=== PATIENT | male | born 1945 | race Caucasian/White ===

== ENCOUNTER 2017-01-22 06:21 | Emergency (ER) | payer OTHER, MEDICARE ==
[~2017-01-22] VITALS: Ht 170.2 cm; Wt 69.4 kg
[2017-01-22] MEDS ORDERED: CARVEDILOL12.5 MG PO (06:48)
[2017-01-22] MEDS ORDERED: RAMIPRIL10 MG PO (06:49)
[2017-01-22] MEDS ORDERED: ATORVASTATIN CA40 MG PO (06:49)
[2017-01-22] MEDS ORDERED: ASPIR-LOW81 MG PO (06:49)
[2017-01-22] MEDS ORDERED: EZETIMIBE10 MG PO (06:49)
--- NOTE | 2017-01-22 22:52 | EKG ---
[facility] [address] [facility] [place] [address] Signed Normal sinus rhythm Cannot rule out Inferior infarct , age undetermined Abnormal ECG No previous ECGs available Confirmed by TAHIRA BELLA MD ([id number]) on 01/22/2017 10:52:07 PM Electronically Signed By: TAHIRA BELLA MD 01/22/17 2252 PATIENT NAME: MEETA SOLANO Electrocardiogram DATE OF : 49 PHYSICIAN: TAHIRA BELLA MD REPORT #: [id number] REPORT IS CONFIDENTIAL AND NOT TO BE RELEASED WITHOUT AUTHORIZATION
== END 2017-01-22 09:00 | disposition home or self-care (01) ==
LOC: ED 06:21
DX: R55 Syncope and collapse (principal); I25.2 Old myocardial infarction; F17.200 Nicotine dependence, unspecified, uncomplicated; Z88.0 Allergy status to penicillin; Z91.018 Allergy to other foods; Z79.899 Other long term (current) drug therapy; Z79.82 Long term (current) use of aspirin
CPT/HCPCS: 70450; 80053; 84484; 85025; 93005; 93010; 96360; 99284; J7030

== ENCOUNTER 2017-11-28 06:35 | Day surgery (SDC) | payer MEDICARE, OTHER ==
[~2017-11-28] VITALS: Ht 170.2 cm; Wt 68.0 kg
[~2017-11-28 06:35] MED LIST: ASPIR-LOW81 MG PO; ATORVASTATIN CA40 MG PO; CARVEDILOL12.5 MG PO; EZETIMIBE10 MG PO; RAMIPRIL10 MG PO
--- NOTE | 2017-11-28 09:10 | NUR ---
11/28/17 0910 Tavia Jones 0906 PT ARRIVED TO PACU NONAROUSABLE WITH ORAL AIRWAY IN PLACE. RESP EVEN AND UNLABORED ON 6L VIA MASK
[2017-11-28] MEDS ORDERED: IBUPROFEN600 MG PO (09:24)
[2017-11-28] MEDS ORDERED: OXYCODON-ACETA1 EAC2 PO (09:25)
[2017-11-28] MEDS ORDERED: MAPAP325 MG PO (09:25)
--- NOTE | 2017-11-28 09:47 | NUR ---
PT ARRIVES TO DS RM 4 AWAKE AND ALERT. PT DENIES ANY N/V AND RATES PAIN 3/10. PT STATES, "I AM SO THIRSTY!" AND IS PROVIDED ICED WATER AND CRACKERS. PT TOLERATING PO WELL. SCD'S IN PLACE. CALL LIGHT TO PT LEFT SIDE. WILL CONTINUE TO MONITOR.
--- NOTE | 2017-11-28 10:29 | NUR ---
PT SPOUSE SITTING BEDSIDE, WATCHING TV TOGETHER. PT PROVIDED PUDDING, MORE CRACKERS AND ICED WATER REFILLED. PT STATES PAIN 2/10 AND DC CRITERIA IS EXPLAINED. PT ENCOURAGED TO USE CALL LIGHT WHEN HE FEELS THE URGE TO VOID.
--- NOTE | 2017-11-28 10:36 | NUR ---
PT UP TO BR WITH RN ASSIST. PT STATES HE IS "A LITTLE DIZZY" WHEN ASKED. PT SOMEWHAT UNSTEADY ON FEET. URINAL PROVIDED TO PT AND PT ABLE TO VOID APPROX 100 MLS CONCENTRATED YELLOW URINE. PT BACK IN BED AND NO LONGER DIZZY FEELING. DC INSTRUCTIONS READ IN THE PRESENCE OF PT AND SPOUSE. ALL QUESTIONS ANSWERED. PT GETS DRESSED. SPOUSE PULLS CAR UP TO MAIN ENTRANCE OF HOSPITAL. PT DC'S VIA WC WITH VOLUNTEER NENA TO HOME.
--- NOTE | 2017-11-29 17:29 | OR ---
[facility] [address] [place], [place] [address] Signed DATE OF OPERATION: 11/28/2017 SURGEON: Luis Ornelas MD PREOPERATIVE DIAGNOSIS: Left inguinal hernia. POSTOPERATIVE DIAGNOSIS: Left direct inguinal hernia. PROCEDURE: Repair of left direct inguinal hernia with implantation of Prolene mesh underlay technique. ANESTHESIA: General endotracheal; Amita Marni, LABORER [employer]; and local 10 mL of 0.25% Marcaine with epinephrine. INDICATION: This 72-year-old white man is a patient of Remy Goldstein in [place], [place] and has been found to have a left inguinal hernia. It is reducible. He has pain in the area from time to time and notes that the hernia is "out all the time." It does reduce on clinical examination. He is admitted at this time to undergo repair of the inguinal hernia. He understands the risks of bleeding, infection, and recurrence. FINDINGS: A direct defect was noted. The cord structures were normal. Implantation of Prolene mesh was undertaken in an underlay technique with good result. DESCRIPTION OF PROCEDURE: The patient was brought to the operating room, given a general anesthetic and given preoperative antibiotic Ancef. Sequential compression device stockings were used and heparin subcutaneously administered. The abdomen was prepared with a chlorhexidine solution and draped sterilely after shaving. A small incision was made cephalad to the pubic tubercle on the left groin and dissection carried through the subcutaneous tissues sharply and electrocautery. The external oblique was identified in the external oblique fascia, incised along its fibers revealing the underlying cord structures. The cord was mobilized from the floor with blunt and electrocautery dissection and encircled with a Sp drain. Clearly noted was a direct hernia defect. There was no sign of indirect sac. The attenuated fibers of the fascia of the transversalis were incised with Electronically Signed By: LUIS ORNELAS MD 11/29/17 1729 PATIENT NAME: MEETA SOLANO OPERATIVE REPORT DATE OF : 49 REPORT #: [id number] PHYSICIAN: LUIS ORNELAS MD PCP: INEZ GOLDSTEIN MD REPORT IS CONFIDENTIAL AND NOT TO BE RELEASED WITHOUT AUTHORIZATION [facility] [address] [place], [place] [address] Signed electrocautery and using blunt dissection, the properitoneal space developed. There was a small amount of oozing of venous blood, which was secured with a 2-0 silk suture particularly along the pubic ramus. A segment of Prolene mesh was cut to an elliptical configuration and secured in an underlay technique using interrupted 2-0 Prolene sutures. A defect was cut in the graft to accommodate the cord and the tails were secured laterally taking care to avoid encumbering ilioinguinal nerve branches. The cord was replaced into the canal and 10 mL of 0.25% Marcaine with epinephrine was injected locally. The cord was replaced into the canal and the external oblique was reapproximated with running 2-0 Vicryl suture. Deann's layer was reapproximated with interrupted 2-0 Vicryl and skin closed with running subcuticular 4-0 Vicryl. Steri-Strips were applied as was a Mepilex silver sponge dressing and OpSite. The patient was ultimately allowed to emerge from anesthesia, extubated, and taken to recovery room in good condition. Sponge, needle, and instrument counts reported as correct x3. Blood loss was minimal. MD AIXA Silveira/SHERRIL /[id number] cc: Inez Goldstein MD Copies: INEZ GOLDSTEIN MD ~ Electronically Signed By: LUIS ORNELAS MD 11/29/17 1729 PATIENT NAME: MEETA SOLANO OPERATIVE REPORT DATE OF : 49 REPORT #: [id number] PHYSICIAN: LUIS ORNELAS MD PCP: INEZ GOLDSTEIN MD REPORT IS CONFIDENTIAL AND NOT TO BE RELEASED WITHOUT AUTHORIZATION
== END 2017-11-28 10:50 | disposition home or self-care (01) ==
LOC: DS 06:35
PROVIDERS: Surgery
PROC: 0YU60JZ Supplement Left Inguinal Region with Synthetic Substitute, Open Approach (ICD-10-PCS; principal; 2017-11-28 08:15)
DX: K40.90 Unilateral inguinal hernia, without obstruction or gangrene, not specified as recurrent (principal); I25.10 Atherosclerotic heart disease of native coronary artery without angina pectoris; I25.2 Old myocardial infarction; F17.210 Nicotine dependence, cigarettes, uncomplicated; Z88.0 Allergy status to penicillin; Z95.5 Presence of coronary angioplasty implant and graft; Z79.82 Long term (current) use of aspirin; Z79.899 Other long term (current) drug therapy
CPT/HCPCS: C1781; J1100; J1644; J1885; J2250; J2405; J2704; J3010; J7120